=== PATIENT | female | born 2000 | race Caucasian/White ===

== ENCOUNTER 2024-06-04 20:22 | Emergency (ER) | payer SELFPAY ==
[~2024-06-04] VITALS: Ht 167.6 cm; Wt 55.0 kg
[2024-06-04 20:34] VITALS: BP 129/75; PULSE 145; RESP 20; TEMP 37.1; O2SAT 98
== END 2024-06-04 23:56 | disposition left against medical advice (07) ==
LOC: ER 20:22
DX: R51.9 Headache, unspecified (principal); Z53.21 Procedure and treatment not carried out due to patient leaving prior to being seen by health care provider